=== PATIENT | male | born 1960 | race Caucasian/White ===

== ENCOUNTER → 2021-09-30 12:08 | Outpatient (BNVA) | payer OTHER, SELFPAY | PROVIDERS: Visit Provider Surgery | DX: Z11.52 Encounter for screening for COVID-19 (principal); Z20.822 Contact with and (suspected) exposure to COVID-19 | CPT/HCPCS: 87635 ==

== ENCOUNTER 2021-10-05 07:11 | Day surgery (SDC) | payer OTHER, SELFPAY ==
[2021-10-03 11:19] VITALS: BMI 31.0
--- NOTE | 2021-10-05 07:22 | ANES.PREANE2 ---
Pre-Anesthetic Assessment Pre-Anesthetic Assessment: Height/Weight: Height 1.75 m Weight 95.254 kg Preop Diagnosis: Rectal bleeding Proposed Procedure: Operation Date: 10/05/21 08:30 Proposed Procedures p Colonoscopy 70227 K92.1(Not Applicable) - Celio Doyle MD Familial anesthetic complications: None Was Beta Michelle taken within 24 hours: N/A Was Clonidine taken within 24 hours: N/A Last intake: > 8 hrs Social: Social History: No alcohol and No tobacco Exam: Pre-Anes Outpt Exam: alert, oriented x 3, clear to auscultation bilaterally and regular rate & rhythm Airway: MP: 1 Dentition: Other (missing) Anesthetic Plan: ASA status: 1 Anesthesia: MAC Risk of > 500 ml blood loss (7ml/kg in children): No PFSH Anesthesia PFSH: Medical History (Updated 07/22/21 @ 14:38 by Celio Doyle MD) Chronic otitis externa Surgical History (Updated 07/22/21 @ 14:38 by Celio Doyle MD) History of colonoscopy with polypectomy (~2014) Family History Other Cancer Hypertension Social History Alcohol intake: former Marital status: Single Number of children: 2 Number of grandchildren: 10 Current occupational status: employed Data Anesthesia Cardiac Studies: No Data to Display
[2021-10-05 07:49] VITALS: BP 169/112; PULSE 84; RESP 18; TEMP 35.6; O2SAT 96
[2021-10-05] MEDS: sodium chloride 0.9% 1,000 ML 30 ML IV (07:52)
--- NOTE | 2021-10-05 08:39 | W.PM.OPSFHP ---
Same Day Surgery H&P Indication for Procedure/HPI DATE OF PROCEDURE: October 05, 2021 CHIEF COMPLAINT/INDICATIONFOR SURGICAL PROCEDURE: colonoscopy for polyps PREOP DIAGNOSIS: diagnostic PLANNED PROCEDRUE: Operation Date: 10/05/21 08:30 Proposed Procedures p Colonoscopy 82640 K92.1(Not Applicable) - Celio Doyle MD Medications/Allergies* Home Medications Medication Instructions Recorded Confirmed Type cetirizine 10 mg tablet 10 mg PO DAILY PRN 07/08/21 10/03/21 History Allergies/Adverse Reactions Allergy/AdvReac Type Severity Reaction Status Date / Time No Known Allergies Allergy Verified 10/05/21 07:36 Current Medications: Generic Name Dose Route Start Last Admin Trade Name Freq PRN Reason Stop Dose Admin Sodium Chloride 1,000 mls @ 30 mls/hr 10/05/21 08:00 10/05/21 07:52 Sodium Chloride 0.9% IV 10/06/21 07:59 30 mls/hr .Q24H ALISHA Administration Pertinent History/Comorbid Conditions* Medical History (Updated 07/22/21 @ 14:38 by Celio Doyle MD) Chronic otitis externa Surgical History (Updated 07/22/21 @ 14:38 by Celio Doyle MD) History of colonoscopy with polypectomy (~2014) Family History (Updated 07/08/21 @ 13:57 by Jany Moon LPN) Cancer Hypertension Social History Alcohol intake: former Marital status: Single Number of children: 2 Number of grandchildren: 10 Current occupational status: employed Pertinent Exam Findings alert, oriented x 3 and regular rate & rhythm Recommendations Surgery/Procedure today Coding Level of Care Code Acute Transport Pilot for [facility]
[2021-10-05 09:02] VITALS: BP 126/81; PULSE 77; RESP 16; TEMP 36.1; O2SAT 96
[2021-10-05 09:13] VITALS: BP 148/103; PULSE 73; RESP 16; O2SAT 95
--- NOTE | 2021-10-05 13:51 | ANE.PACU2 ---
Inpatient post-anesthesia follow up: Airway intact: Yes Vital signs: Temperature 97.0 F Pulse Rate 73 Respiratory Rate 16 Blood Pressure 148/103 Pulse Oximetry 95 Oxygen Delivery Me thod Room Air Oxygen Flow Rate 3.5 Fraction of Inspir ed Oxygen Hydration adequate: Yes Nausea and vomiting: No Pain level: 1 Mental status: Baseline
== END 2021-10-05 09:41 | disposition home or self-care (01) ==
PROVIDERS: PCP Family Medicine Adult Medicine; Visit Provider Surgery
PROC: 0DJD8ZZ Inspection of Lower Intestinal Tract, Via Natural or Artificial Opening Endoscopic (ICD-10-PCS; CPT 45378; principal; 2021-10-05 08:30)
DX: K92.1 Melena (principal); D12.4 Benign neoplasm of descending colon; D12.8 Benign neoplasm of rectum; K64.8 Other hemorrhoids
CPT/HCPCS: 45380; 88305; J2704; J3490; J7030

== ENCOUNTER 2022-07-09 12:06 | Emergency (ER) | payer OTHER, SELFPAY ==
[2022-07-09] VITALS (12 sets, daily range): BP systolic 111–167; BP diastolic 62–108; PULSE 63–74; RESP 16–23; O2SAT 96–100; BMI 28.7
--- NOTE | 2022-07-09 12:15 | CTR_ITS ---
PROCEDURE INFORMATION: Exam: CT Head Without Contrast Exam date and time: 07/09/2022 12:24 PM Age: 62 years old Clinical indication: Other: Seizure; Additional info: AMS TECHNIQUE: Imaging protocol: Computed tomography of the head without contrast. Radiation optimization: All CT scans at this facility use at least one of these dose optimization techniques: automated exposure control; mA and/or kV adjustment per patient size (includes targeted exams where dose is matched to clinical indication); or iterative reconstruction. COMPARISON: No relevant prior studies available. RADIATION DOSE METRICS: Total DLP (mGy-cm): 1076.58 FINDINGS: Brain: There is mild diffuse brain atrophy. No evidence of acute intracranial hemorrhage. No extra-axial fluid collections. There is mild lucency in the cerebral white matter, consistent with microvascular disease. Browne white differentiation is intact. No evidence of mass. Cerebral ventricles: No ventriculomegaly. Paranasal sinuses: There is mucosal thickening in ethmoid and frontal sinuses. Mastoid air cells: There is partial opacification involving right posterior mastoid air cells. Left mastoid air cells are clear. Bones/joints: No acute fracture. Soft tissues: Unremarkable as visualized. Vasculature: There is vascular calcification. CT/CT head wo con* [id number] IMPRESSION: 1. No evidence of acute intracranial abnormality. 2. Microvascular disease.
[2022-07-09] MEDS: midazolam 1 mg/mL INJ 2 mL 5 MG IVP (12:25)
[2022-07-09 12:32] LABS: Basophils # 0.1 10^3/uL (0.0-0.1); Eosinophils # 0.1 10^3/uL (0.0-0.8); Eosinophils % 2.1 %; Hematocrit 49.4 % (42.0-52.0); Hemoglobin 16.6 g/dL (11.7-16.6); Lymphocytes # 2.7 10^3/uL (0.8-4.8); Lymphocytes % 40.6 %; Mean Corpuscular HGB Conc 33.6 g/dL (30.0-36.0); Mean Corpuscular Hemoglobin 29.1 pg (28.0-34.0); Mean Corpuscular Volume 86.5 fl (80-94); Mean Platelet Volume 12.8 fL (7.4-10.4); Monocytes # 0.5 10^3/uL (0.2-0.9); Nucleated Red Blood Cells % 0 %; Platelet Count 144 10^3/cmm (130-400); Red Blood Count 5.71 10^6/uL (4.1-5.3); Red Cell Distribution Width 13.2 % (12.1-15.1); White Blood Count 6.7 10^3/uL (4.0-10.0)
[2022-07-09 12:42] LABS: Lactate (Lactic Acid level) 1.6 mmol/L (0.5-2.2)
[2022-07-09 13:21] LABS: Alanine Aminotransferase 18 U/L (0-41); Albumin Level 4.4 g/dL (3.5-5.2); Alcohol Level < 10 mg/dL (0-10); Alkaline Phosphatase 87 U/L (40-130); Anion Gap 16.3 (5-19); Aspartate Amino Transferase 16 U/L (0-40); Blood Urea Nitrogen 15 mg/dL (8-23); Calcium 9.3 mg/dL (8.5-10.5); Carbon Dioxide 25 mmol/L (22-29); Chloride 102 mmol/L (98-107); Creatinine Clr Calc Pharmacy 111.2322; Globulin 2.5 g/dL (1.3-4.6); Glomerular Filtration Rate 98.6 mL/min (90-130); Glucose 100 mg/dL (65-115); Osmolality Calculated 289 mOsm/kg (285-295); Potassium 4.3 mmol/L (3.5-5.1); Sodium 139 mmol/L (136-145); Total Bilirubin 0.6 mg/dL (0.15-1.2); Total Protein 6.9 g/dL (6.6-8.7)
--- NOTE | 2022-07-09 14:06 | ED_ITS ---
HPI - Seizure General: Chief Complaint: Seizure Stated Complaint: seizure Time Seen by Provider: 07/09/22 12:08 History of Present Illness: HPI Narrative: 62-year-old male presenting today with question of seizure activity. Patient was at [facility]. When he started to have diffuse body shaking. Prompting them to bring him to the ED. In route he received 2 of Ativan by EMS. Upon arrival he received 5 of Versed. Shaking stopped. Patient without evidence of postictal state. Able to recall entire event. No prior history of seizure-like activity. Does not take any new medications. No recent infections or illness. No drug use. No nausea or vomiting or diarrhea. Review of Systems General: Reports: 10 or more systems reviewed and unremarkable except in HPI and below PFSH ED PFSH: Medical History Chronic otitis externa Colon polyps Elevated blood pressure reading in office with diagnosis of hypertension Internal hemorrhoids Surgical History History of colonoscopy with polypectomy (2014) Status post colonoscopy (10/05/21) Family History Other Cancer Hypertension Social History Smoking and tobacco status: never smoked Alcohol intake: former Marital status: Single Number of children: 2 Number of grandchildren: 10 Current occupational status: employed Physical Exam Const: COMMON NORMALS: no acute distress, patient oriented x3 and alert GENERAL APPEARANCE: cooperative ORIENTATION/CONSCIOUSNESS: Yes awake, Yes oriented to person, Yes oriented to place and Yes oriented to time HENMT: COMMON NORMALS: normocephalic, atraumatic, external ears normal, Normal external nose present and moist oral mucous membranes HEAD & SCALP: normal to inspection, normocephalic and atraumatic NOSE: Normal external nose present GENERAL EAR: hearing grossly impaired EXTERNAL EAR: Yes external ears normal Eye: COMMON NORMALS: Equal, round and reactive pupils present, EOMs intact bilaterally, conjunctivae normal and no scleral icterus GENERAL EYE: appearance normal, both eyes and all related structures EYELID: eyelids normal CONJUNCTIVA: Yes conjunctivae normal SCLERA: sclerae normal PUPIL: Yes Equal, round and reactive pupils present Neck/C-Spine: COMMON NORMALS: full ROM, supple and no JVD GENERAL: Yes normal visual inspection Lymph: LYMPHATIC: no lymphadenopathy noted and no lymphedema noted Chest: COMMONS NORMALS: normal inspection of the chest Resp: COMMON NORMALS: normal respiratory effort, No retractions and No use of accessory muscles Cardio: COMMON NORMALS: no JVD, regular rate and regular rhythm RATE: regular rate RHYTHM: regular rhythm GI: COMMON NORMALS: Normal to inspection, nondistended, normoactive bowel sounds present : COMMON NORMALS: Yes no CVA tenderness BLADDER/KIDNEY EXAM: Yes no CVA tenderness Back/Pelvis: COMMON NORMALS: no CVA tenderness and thoracic and lumbar spine normal to inspection Extremity: COMMON NORMALS: normal to inspection, full ROM and capillary refill normal GENERAL: Yes normal exam except as noted Neuro: COMMON NORMALS: patient oriented x3, CN's II-XII intact bilaterally, moves all extremities, no focal motor deficits, no sensory deficits noted and ga it normal SENSORIUM/ORIENTATION: Yes alert, Yes oriented to person, Yes o riented to place and Yes oriented to time Psych: COMMON NORMALS: mental status grossly normal, Normal thought process present, cooperative and normal affect THOUGHT PROCESS: Normal thought process present Skin: COMMON NORMALS: no rashes or lesions noted and no wounds GENERAL SKIN EXAM: no rashes or lesions noted Course Vital Signs: Vital signs: Vital Signs Pulse Rate 67 07/09/22 14:00 Respiratory Rate 16 07/09/22 14:00 Blood Pressure 127/62 07/09/22 14:00 Pulse Oximetry 98 07/09/22 14:00 Oxygen Delivery Me thod 07/09/22 12:15 MDM - Seizure MDM Narrative Medical decision making narrative: 62-year-old male presenting today with seizure like activity. Patient's lactic acid is within normal range. No evidence of postictal state. Shaking is uncertain etiology. But may not represent an acute seizure. CBC is unremarkable. CMP is unremarkable. Blood alcohol is within normal range. CT head is without significant abnormality. Will refer on to neurology as an outpatient. Recommended no driving until cleared by neurology. Patient was given strict return precautions and recommended routine outpatient follow-up. Lab Data Result diagrams: 07/09/22 12:15 07/09/22 12:45 Labs: Radiology Impressions Head CT 07/09/22 12:15 IMPRESSION: 1. No evidence of acute intracranial abnormality. 2. Microvascular disease. Laboratory Results WBC 6.7 10^3/uL (4.0-10.0) 07/09/22 12:15 RBC 5.71 10^6/uL (4.1-5.3) H 07/09/22 12:15 Hgb 16.6 g/dL (11.7-16.6) 07/09/22 12:15 Hct 49.4 % (42.0-52.0) 07/09/22 12:15 MCV 86.5 fl (80-94) 07/09/22 12:15 MCH 29.1 pg (28.0-34.0) 07/09/22 12:15 MCHC 33.6 g/dL (30.0-36.0) 07/09/22 12:15 RDW 13.2 % (12.1-15.1) 07/09/22 12:15 Plt Count 144 10^3/cmm (130-400) 07/09/22 12:15 MPV 12.8 fL (7.4-10.4) H 07/09/22 12:15 Neut % (Auto) 49.0 % 07/09/22 12:15 Lymph % (Auto) 40.6 % 07/09/22 12:15 [place] % (Auto) 7.0 % 07/09/22 12:15 Eos % (Auto) 2.1 % 07/09/22 12:15 Baso % (Auto) 1.0 % 07/09/22 12:15 Neut # (Auto) 3.30 10^3/uL (1.8-7.7) 07/09/22 12:15 Lymph # (Auto) 2.7 10^3/uL (0.8-4.8) 07/09/22 12:15 [place] # (Auto) 0.5 10^3/uL (0.2-0.9) 07/09/22 12:15 Eos # (Auto) 0.1 10^3/uL (0.0-0.8) 07/09/22 12:15 Baso # (Auto) 0.1 10^3/uL (0.0-0.1) 07/09/22 12:15 Nucleated RBC % (auto) 0 % 07/09/22 12:15 Nucleated RBCs # 0.0 /100WBC 07/09/22 12:15 Sodium 139 mmol/L (136-145) 07/09/22 12:45 Potassium 4.3 mmol/L (3.5-5.1) 07/09/22 12:45 Chloride 102 mmol/L (98-107) 07/09/22 12:45 Carbon Dioxide 25 mmol/L (22-29) 07/09/22 12:45 Anion Gap 16.3 (5-19) 07/09/22 12:45 BUN 15 mg/dL (8-23) 07/09/22 12:45 Creatinine 0.8 mg/dL (0.7-1.2) 07/09/22 12:45 GFR Calculation 98.6 mL/min (90-130) 07/09/22 12:45 Glucose 100 mg/dL (65-115) 07/09/22 12:45 Calculated Osmolality 289 mOsm/kg (285-295) 07/09/22 12:45 Lactate 1.6 mmol/L (0.5-2.2) 07/09/22 12:15 Calcium 9.3 mg/dL (8.5-10.5) 07/09/22 12:45 Total Bilirubin 0.6 mg/dL (0.15-1.2) 07/09/22 12:45 AST 16 U/L (0-40) 07/09/22 12:45 ALT 18 U/L (0-41) 07/09/22 12:45 Alkaline Phosphatase 87 U/L (40-130) 07/09/22 12:45 Total Protein 6.9 g/dL (6.6-8.7) 07/09/22 12:45 Albumin 4.4 g/dL (3.5-5.2) 07/09/22 12:45 Globulin 2.5 g/dL (1.3-4.6) 07/09/22 12:45 Ethyl Alcohol < 10 mg/dL (0-10) 07/09/22 12:45 Discharge Plan Discharge Patient Disposition: Home Clinical Impression: Convulsion Condition: Stable Prescriptions: No Action cetirizine [Allergy Relief (cetirizine)] 10 mg tablet 10 mg PO DAILY PRN (Reason: allergies) Discharge Orders: Discharge ED (Routine); Ordered 07/09/22 Ordered By: Alan Alonzo Referrals: Jesse Bradley MD [Primary Care Provider] - Patient Instructions: Opioid Safety, Pain Management Coding Level of Care Code ED Scientific Programmer Analyst for Chg Fwd Exam Comprehensive
--- NOTE | 2022-07-09 14:51 | PC.NURSE ---
Patient provided urinal at this time for sample.
[2022-07-09 14:57] LABS: Add Urine Microscopic? NO; Charge for UA Resulting for Rev
[2022-07-09 15:09] LABS: Bilirubin Urine Neg (Negative); Blood Urine Neg (Negative); Glucose Urine UA Norm (Normal); Ketones Urine Negative (Negative); Leukocyte Esterase Urine Negative (Negative); Nitrate Urine Negative (Negative); Protein Urine Neg (Negative); Specific Gravity, Urine 1.015 (1.005-1.030); Sulfosalicylic Acid Urine Negative (Negative); Urine Appearance Clear (CLEAR); Urine Color Straw (Yellow); Urobilinogen Urine Norm (Negative); pH Urine 8 (5-7)
[2022-07-09 15:18] LABS: Amphetamines Screen Urine Negative (Negative); Barbiturates Screen Urine Negative (Negative); Benzodiazepines Screen Urine Negative (Negative); Cocaine Screen Urine Negative (Negative); Opiate Screen Urine Negative (Negative); PCP Screen Urine Negative (Negative); THC Screen Urine Positive (Negative)
--- NOTE | 2022-07-10 11:44 | DCPLANNER ---
Addendum entered by Indu Ramires 09/14/22 10:40: Patient had a follow up appointment scheduled with neurology - patient did attend appointment. Addendum entered by Indu Ramires 08/17/22 08:23: Patient has a follow up appointment scheduled for Sunday, August 21, 2022 at 11:[address] Xiao at neurology. Clinic will call patient with appointment information. Original Note: trial manager had message to schedule a follow up appointment for patient with neurology. trial manager sent patients information to the front office staff at neurology. Patients information will be printed and reviewed. Clinic will call patient with appointment information.
== END 2022-07-09 15:27 | disposition home or self-care (01) ==
PROVIDERS: Emergency Provider Emergency Medicine; PCP Family Medicine Adult Medicine
DX: R56.9 Unspecified convulsions (principal)
CPT/HCPCS: 70450; 80053; 80306; 80307; 81003; 83605; 85025; 96374; 99285; J2250

== ENCOUNTER → 2023-03-29 08:56 | Outpatient (BNVA) | payer OTHER, SELFPAY | PROVIDERS: PCP Family Medicine Adult Medicine; Visit Provider Family Medicine Adult Medicine | DX: I10 Essential (primary) hypertension (principal) | CPT/HCPCS: 80053; 80061; 84443; 85025 ==

== ENCOUNTER 2024-08-20 09:27 | Outpatient (CLI) | payer OTHER, SELFPAY ==
--- NOTE | 2024-08-20 09:30 | XRR_ITS ---
PROCEDURE INFORMATION: Exam: XR Chest Exam date and time: 08/20/2024 9:35 AM Age: 64 years old Clinical indication: Condition or disease; Lung condition and disease; Copd TECHNIQUE: Imaging protocol: Radiologic exam of the chest. Views: 2 views. COMPARISON: No relevant prior studies available. FINDINGS: Lungs: Unremarkable. No consolidation. Pleural spaces: Unremarkable. No pleural effusion. No pneumothorax. Heart/Mediastinum: Unremarkable. No cardiomegaly. Bones/joints: Unremarkable. XR/XR chest 2V* [id number] IMPRESSION: No acute findings.
[2024-08-20 10:06] LABS: Basophils # 0.1 10^3/uL (0.0-0.1); Basophils % 0.7 %; Eosinophils # 0.1 10^3/uL (0.0-0.8); Eosinophils % 1.9 %; Hematocrit 46.7 % (37-53); Lymphocytes # 2.4 10^3/uL (0.8-4.8); Lymphocytes % 33.6 %; Mean Corpuscular HGB Conc 32.5 g/dL (30-55); Mean Corpuscular Hemoglobin 29.4 pg (27-33); Mean Corpuscular Volume 90.3 fl (82-101); Mean Platelet Volume 10.6 fL (7.4-10.4); Monocytes # 0.4 10^3/uL (0.2-0.9); Monocytes % 5.9 %; Neutrophils # 4.13 10^3/uL (1.8-7.7); Neutrophils % 57.2 %; Nucleated Red Blood Cells % 0 %; Platelet Count 207 10^3/cmm (157-399); Red Blood Count 5.17 10^6/uL (3.85-5.65); Red Cell Distribution Width 13.1 % (12.1-15.1); White Blood Count 7.23 10^3/uL (3.29-11.43)
[2024-08-20 10:38] LABS: Alanine Aminotransferase 20 U/L (0-41); Albumin Level 4.2 g/dL (3.5-5.2); Alkaline Phosphatase 73 U/L (40-130); Anion Gap 13.4 (5-19); Aspartate Amino Transferase 11 U/L (0-40); Blood Urea Nitrogen 18 mg/dL (8-23); Calcium 8.6 mg/dL (8.5-10.5); Carbon Dioxide 28 mmol/L (22-29); Chloride 101 mmol/L (98-107); Cholesterol 204 mg/dL (0-200); Free T4 Free Thyroxine 1.44 ng/dL (0.82-1.77); Globulin 2.2 g/dL (1.3-4.6); Glucose 91 mg/dL (65-115); HDL Cholesterol 40 mg/dL (60-100); LDL Cholesterol Calculated 131 mg/dL (50-129); LDL HDL Ratio 3.28 RATIO (0.00-3.22); Osmolality Calculated 287 mOsm/kg (285-295); Potassium 4.4 mmol/L (3.5-5.1); Sodium 138 mmol/L (136-145); Thyroid Stimulating Hormone 2.16 uIU/mL (0.27-4.20); Total Bilirubin 0.4 mg/dL (0.15-1.2); Total Protein 6.4 g/dL (6.6-8.7); Triglycerides 163 mg/dL (0-150)
== END 2024-08-20 09:28 | disposition home or self-care (01) ==
PROVIDERS: PCP Family Medicine; Visit Provider Family Medicine
DX: R06.02 Shortness of breath (principal); Z13.6 Encounter for screening for cardiovascular disorders
CPT/HCPCS: 36415; 71046; 80053; 80061; 84439; 84443; 85025

== ENCOUNTER 2024-11-19 10:25 | Outpatient (CLI) | payer OTHER, SELFPAY ==
--- NOTE | 2024-11-19 10:27 | XRR_ITS ---
PROCEDURE INFORMATION: Exam: XR Right Hip Exam date and time: 11/19/2024 10:38 AM Age: 64 years old Clinical indication: Right hip; R hip pain on lateral side that runs down to foot and travels up back slightly x 1/2 year TECHNIQUE: Imaging protocol: Radiologic exam of the right hip. Views: 1 view hip with pelvis when performed. COMPARISON: No relevant prior studies available. FINDINGS: Bones/joints: There is no fracture or joint dislocation. Soft tissues: Unremarkable. XR/XR hip RT 2-3V wo/w pel* [id number] IMPRESSION: No acute osseous abnormality.
== END 2024-11-19 10:26 | disposition home or self-care (01) ==
PROVIDERS: Family Provider Family Medicine; PCP Family Medicine; Visit Provider Family Medicine
DX: M25.551 Pain in right hip (principal)
CPT/HCPCS: 73502